=== PATIENT | female | born 1940 | race Caucasian/White ===

== ENCOUNTER → 2020-09-06 10:35 | Outpatient (BNVA) | payer MEDICARE, SELFPAY | PROVIDERS: PCP Family Medicine; Visit Provider Hospitalist | DX: J43.2 Centrilobular emphysema (principal); R91.8 Other nonspecific abnormal finding of lung field; J96.11 Chronic respiratory failure with hypoxia | CPT/HCPCS: 99212 ==

== ENCOUNTER → 2021-04-16 09:58 | Outpatient (BNVA) | payer MEDICARE, SELFPAY | PROVIDERS: PCP Family Medicine; Visit Provider Hospitalist | DX: J43.2 Centrilobular emphysema (principal); R91.8 Other nonspecific abnormal finding of lung field; J96.11 Chronic respiratory failure with hypoxia | CPT/HCPCS: 99212 ==

== ENCOUNTER → 2022-01-31 13:15 | Outpatient (BNVA) | payer MEDICARE, SELFPAY | PROVIDERS: PCP Family Medicine; Visit Provider Hospitalist | DX: J43.2 Centrilobular emphysema (principal); J96.11 Chronic respiratory failure with hypoxia; R91.8 Other nonspecific abnormal finding of lung field | CPT/HCPCS: 99212 ==

== ENCOUNTER → 2022-08-06 10:45 | Outpatient (BNVA) | payer MEDICARE, SELFPAY | PROVIDERS: PCP Family Medicine; Visit Provider Hospitalist | DX: J96.11 Chronic respiratory failure with hypoxia (principal); J43.2 Centrilobular emphysema; R91.8 Other nonspecific abnormal finding of lung field | CPT/HCPCS: 99212 ==

== ENCOUNTER 2023-08-01 13:59 | Outpatient (AMB) | payer MEDICARE, SELFPAY ==
--- NOTE | 2023-08-01 14:03 | A.OFFVIS_ITS ---
Intake Vital Signs 08/01/23 14:04 Weight 111 lb 5.335 oz BP 142/72 H Blood Pressure Location Rt brachial Position Sitting Pulse 110 H Pulse Source Pulse Oximeter Pulse Oximetry (%) 93 Oxygen Delivery Method Room Air Intake Visit Reasons: COPD Allergies fluticasone [Advair Diskus] Allergy (Severe, Verified 08/01/23 14:08) Mouth Dryness salmeterol [Advair Diskus] Allergy (Severe, Verified 08/01/23 14:08) Mouth Dryness Medication List - Last Reconciled 08/01/23 by Lety Porter LPN acetaminophen (Tylenol Extra Strength) 500 mg PO Q6H PRN apixaban (Eliquis) 2.5 mg PO BID atorvastatin 10 mg PO DAILY calcium carbonate (Calcium 500) 500 mg PO DAILY cholecalciferol (vitamin D3) 25 mcg PO DAILY Combivent Respimat 20-100 mcg/actuation (ipratropium-albuterol) 1 puff inhalation QID NS diltiazem HCl ER (Tiadylt ER) 0 mg PO hydrochlorothiazide 25 mg PO DAILY inhalational spacing device (Aerochamber Plus Flow-Vu) As directed Oxygen Home Use As directed Symbicort 160-4.5 mcg/actuation (budesonide-formoterol) 2 puffs PO BID NS turmeric mg PO HPI HPI Comments History of Present Illness Details The patient is a 83-year-old woman with a known history of COPD and chronic respiratory failure. Recently she was diagnosed with RSV with pneumonia. She was admitted to [facility]. There she had an x-ray which did not demonstrate any significant airspace disease however, she did have what appeared to be a nodular density in the left lung base. Not sure this is a nipple or this is actual nodular density. Therefore, she needs to undergo a repeat x-ray. The patient also has been using oxygen. She has not been using the oxygen all the time. Therefore we did a 6 minutes walk test the patient demonstrated that she does need the oxygen with activity. Therefore, we encouraged the patient to use the oxygen with activity. She continues her respiratory therapy. She is also using Eliquis for atrial fibrillation. Otherwise patient is without any other complaints. In the office we did a 6 minutes walk test on the patient did demonstrate her need for oxygen still needing at least 2 L with activity. Will try to see if she can qualify for conserving device by decreasing the minimum pulse ox. We did review her chest x- ray demonstrating just hyperinflation no evidence of any nodular densities as described during her last x-ray. However, we understand that x-rays and a perfect to look at nodular densities in a CT scan be a lot more accurate. Therefore will discuss the need for CT scan during his next visit. Recently she was diagnosed with RSV with pneumonia. She was admitted to [facility]. There she had an x-ray which did not demonstrate any significant airspace disease however, she did have what appeared to be a nodular density in the left lung base. Not sure this is a nipple or this is actual nodular density. Therefore, she needs to undergo a repeat x-ray. The patient also has been using oxygen. She has not been using the oxygen all the time. Therefore we did a 6 minutes walk test the patient demonstrated that she does need the oxygen with activity. Therefore, we encouraged the patient to use the oxygen with activity. She continues her respiratory therapy. She is also using Eliquis for atrial fibrillation. Otherwise patient is without any other complaints. She does have underlying pulmonary nodules noted on her x-ray from September 2019. Will have her get a chest x-ray at this time to see if is still present. If the x-ray continues to be abnormal then will talk about getting a CT scan of the chest. 09/06/2020 the patient is here for pulmonary follow-up visit. Overall she is doing about the same. She continues to use her oxygen with activity with good effect. She continues on the current respiratory regimen. Again we talked about her imaging studies. She did have chest x-rays done at [facility] demonstrating no acute disease and also has had an x-ray here back in October 2019 demonstrating no evidence of any acute disease or pulmonary nodules. She does have underlying pulmonary nodules based on that CXR. At this point the patient has been doing well and she is concerned about the COVID-19 infections and therefore would like not to follow-up with any imaging at this time. Therefore will plan to follow-up in 6 months she should have a chest x-ray prior to that visit. She develops any worsening symptoms or any new symptoms she is to call so we can look at that sooner. Will hold off on any CAT scans at this time based on the patient's preference. 04/16/2021 the patient is here for a pulmonary follow-up visit. Overall the patient has been doing relatively well. She continues use the oxygen with good effect. She does use with activity. In addition to that she has been using her respiratory inhalers with good adherence. She has not required any hospitalizations. However, 1 was hot and humid the patient did develop worsening shortness of breath requiring prednisone. She completed the prednisone course and she does feel better at this time. She denies any cough or any worsening congestion. She was supposed to undergo a chest x-ray but she did not have the opportunity. I did recommend she can have the x-ray done after the visit but she felt that she was doing well. I did encourage her to get the x-ray prior to the next visit in 6 months. If however she is developing any worsening symptoms prior to that visit she is to call our office for earlier assessment. 01/31/2022 the patient is here for a pulmonary follow-up visit. Overall the patient is doing relatively well from a respiratory status. She continues use her oxygen with good effect. The patient also continues her respiratory therapy. She continues to have dyspnea on exertion. [id number] severity. Now she is planning a trip for a family reunion in [facility]. She did bring the paperwork that needs to be filled out in order for her to be able to travel. Patient already has a portable oxygen concentrator that is if they approve and should have no difficulties with it. The meantime the patient has all her medications she knows to take a mole to when she goes over to [place]. The patient does need a spacer. I do not have 1 available so will send to the local pharmacy. 08/01/2023 the patient is here for a pulmonary follow-up visit. She continues to do well. Continues to have dyspnea on exertion. Today she came in without her oxygen because her portable oxygen concentrator is undergoing maintenance. Therefore she has increased shortness of breath today with activity. [id number] severity. She is going slow. She continues her respiratory therapy with good effect. She has yet get a chest x-ray. [place] therefore she [place] have 1. However, she will make time sometime after the holidays to get her chest x-ray. Will follow up with the patient 6 months. [facility] Medical History (Updated 04/16/21 @ 21:46 by Sahnkar Pablo MD) Chronic respiratory failure Pulmonary nodules COPD (chronic obstructive pulmonary disease) Social History (Updated 04/16/21 @ 10:22 by ASTRID Bourgeois) Patient Tobacco Use Status: Former Tobacco user Tobacco use type: Cigarette Years Smoked: 12 years Review of Systems Const Denies night sweats ENT Denies change in voice, Denies lip swelling, Denies mouth pain, Reports nasal congestion, Reports nasal discharge and Denies tongue swelling Card Denies chest pain and Reports dyspnea on exertion Resp Reports cough and Reports dyspnea on exertion GI Denies abdominal pain Musc Denies no additional complaints Neuro Denies Neuro-related abnormal movements Psych Denies no additional complaints Chi/Lymph Denies easy bleeding and Denies lymphadenopathy Aller/Immun Denies lip swelling and Denies tongue swelling Physical Exam Vital Signs: Last Vital Signs Pulse 110 H 08/01/23 14:04 BP 142/72 H 08/01/23 14:04 Pulse Ox 93 08/01/23 14:04 Oxygen Delivery Method Room Air 08/01/23 14:04 Const General: alert HEENT General nose exam: Abnormal external nose present and Nasal discharge present Eyes Pupils: Equal, round and reactive pupils present Neck Neck: Yes normal visual inspection, Yes full ROM and Yes no lymphadenopathy Chest Chest palpation & inspection: normal inspection of the chest Resp Auscultation: diminished lung sounds Cardio Rate: regular rate Rhythm: regular rhythm Heart sounds: S1 normal heart sound present and S2 normal heart sound present GI Palpation (GI): Soft to palpation and nontender Auscultation: normal bowel sounds General: Yes no CVA tenderness Back/Spine/Pelvis Back: no CVA tenderness Skin General skin exam: rashes and/or lesions noted Neuro Cranial nerves: Yes Equal, round and reactive pupils present Assessment & Plan Assessment & Plan (1) COPD (chronic obstructive pulmonary disease): Code(s): J44.9 - Chronic obstructive pulmonary disease, unspecified Qualifiers: COPD type: emphysema Emphysema type: centrilobular Qualified Code(s): J43.2 - Centrilobular emphysema Plan: continue respiratory therapy (2) Pulmonary nodules: Comment: Had a previous CXR with nodular density, repeat CXR w/o nodules but Xray not conslusive. The patient is not interested in having a CT chest at this time. Therefore, will have her get repeat CXR. Code(s): R91.8 - Other nonspecific abnormal finding of lung field (3) Chronic respiratory failure: Code(s): J96.10 - Chronic respiratory failure, unspecified whether with hypoxia or hypercapnia Qualifiers: Respiratory failure complication: hypoxia Qualified Code(s): J96.11 - Chronic respiratory failure with hypoxia Plan continue Symbicort and Combivent spacer for symbicort continue DuoNeb continue oxygen supplementation 2 L with activity and sleep I did encourage her to get a chest x-ray due to the fact that her last x-ray was abnormal. The patient is reluctant to have one. Will readdress during her f/u visit Follow-up in 6 months or sooner if she develops any worsening symptoms. Coding Level of Care Code Est Pt Level 4 (23208) Diagnoses Centrilobular emphysema J43.2 COPD type: emphysema Emphysema type: centrilobular Pulmonary nodules R91.8 Chronic respiratory failure with hypoxia J96.11 Respiratory failure complication: hypoxia Time Spent (min) 16
[2023-08-01 14:04] VITALS: BP 142/72; PULSE 110; O2SAT 93
== END 2023-08-01 14:22 | disposition home or self-care (01) ==
PROVIDERS: PCP Family Medicine; Visit Provider Hospitalist
DX: J43.2 Centrilobular emphysema (principal); R91.8 Other nonspecific abnormal finding of lung field; J96.11 Chronic respiratory failure with hypoxia
CPT/HCPCS: 99214

== ENCOUNTER → 2023-08-01 13:59 | Outpatient (BNVA) | payer MEDICARE, SELFPAY | PROVIDERS: PCP Family Medicine; Visit Provider Hospitalist | DX: J96.11 Chronic respiratory failure with hypoxia (principal); J44.9 Chronic obstructive pulmonary disease, unspecified; J43.2 Centrilobular emphysema; R91.8 Other nonspecific abnormal finding of lung field; Z87.891 Personal history of nicotine dependence; Z99.81 Dependence on supplemental oxygen | CPT/HCPCS: 99212 ==

== ENCOUNTER 2024-09-13 10:29 | Outpatient (AMB) | payer MEDICARE, MEDICAID, SELFPAY ==
[2024-09-13 10:37] VITALS: BP 138/72; PULSE 87; O2SAT 94; BMI 17.3
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
== END 2024-09-13 10:58 | disposition home or self-care (01) ==
PROVIDERS: PCP Family Medicine; Visit Provider Hospitalist
DX: J43.2 Centrilobular emphysema (principal); R91.8 Other nonspecific abnormal finding of lung field; J96.11 Chronic respiratory failure with hypoxia
CPT/HCPCS: 99214

== ENCOUNTER → 2024-09-13 10:29 | Outpatient (BNVA) | payer MEDICARE, SELFPAY | PROVIDERS: PCP Family Medicine; Visit Provider Hospitalist | DX: J43.2 Centrilobular emphysema (principal); J96.11 Chronic respiratory failure with hypoxia; R91.8 Other nonspecific abnormal finding of lung field | CPT/HCPCS: 99212 ==

== ENCOUNTER 2024-09-22 10:47 | Outpatient (REF) | payer MEDICARE, MEDICAID, SELFPAY ==
--- NOTE | ~2024-09-22 | XR_ITS ---
CLINICAL HISTORY: R91.8 - Other nonspecific abnormal finding of lung field 2 view chest x-ray Comparison: 11/02/2019 Findings: Decreased bilateral pleural effusion with persistent blunting of the posterior costophrenic recesses. No lung infiltrate. Small calcified nodule/granuloma projecting over the left lower lung. Normal size heart. No acute fracture. Right glenohumeral osteoarthritis. IMPRESSION: Decreased bilateral pleural effusion with persistent blunting (due to pleural adhesion/thickening versus pleural effusions) of the posterior costophrenic recesses. No lung infiltrate. This document has been electronically signed by: Mignon Tao MD on 09/23/2024 12:27:49
== END 2024-09-22 10:48 | disposition home or self-care (01) ==
LOC: HO.XRAY 10:47
PROVIDERS: PCP Family Medicine; Visit Provider Hospitalist
DX: R91.8 Other nonspecific abnormal finding of lung field (principal); J96.11 Chronic respiratory failure with hypoxia
CPT/HCPCS: 71046

== ENCOUNTER → 2024-09-22 10:59 | Outpatient (BNV) | payer MEDICARE, MEDICAID, SELFPAY | PROVIDERS: PCP Family Medicine; Visit Provider Radiology Diagnostic Radiology | DX: R91.8 Other nonspecific abnormal finding of lung field (principal) | CPT/HCPCS: 71046 ==

== ENCOUNTER 2025-03-17 10:51 | Outpatient (AMB) | payer MEDICARE, SELFPAY ==
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
[2025-03-17 10:59] VITALS: BP 164/66; PULSE 93; O2SAT 95
--- OUTSIDE RECORDS SUMMARY | 2025-03-17 11:35 | XMS_ITS | Encounter Summary ---
Author Organization [facility] Address [address] [place] [address] Care Team Providers Care Senior Mobile Application Developer Name Role Phone Unavailable Primary Care Provider Unavailabl e Encounter Details Date Type Department Care Team (Late st Contact Info) Description 12/20/2024 Scanned Document Formerly [facility] [place] [address] [phone] Primary Care, Scan Social History Tobacco Use Types Packs/Day Years Used Date Smoking Tobacco: Never Assessed Comments Unknown Sex and Gender Information Value Date Recorded Sex Assigned at Not on file Legal Sex Female 11:21 AM EDT Gender Identity Not on file Sexual Orientation Not on file documented as of this encounter Plan of Treatment Not on file documented as of this encounter Visit Diagnoses Not on filedocumented in this encounter
--- OUTSIDE RECORDS SUMMARY | 2025-03-17 11:35 | XMS_ITS | Clinical Summary ---
Author Organization [facility] [employer] [facility] [place] Address [address] [place] [address] Phone Care Team Providers Care Pizza Delivery Driver Name Role Phone Karis Rodriguez MD Primary Care Provider Unavail able Allergies Active Allergy Reactions Criticality Noted Date Comments Fluticasone Propion-Salmeterol 10/01 Medications Eliquis 2.5 mg tablet Take 1 tablet (2.5 mg total) by mouth 2 (two) times a day. for 30 days 12/29/2024 Active Symbicort 160-4.5 mcg/actuation inhaler Inhale 2 puffs by mouth 2 (two) times a day. Active dilTIAZem (TIAZAC) 300 mg 24 hr capsule Take 1 capsule (300 mg total) by mouth 1 (one) time each day. 10/23/2024 Active hydroCHLOROthia zide (HYDRODIURIL) 25 mg tablet Take 1 tablet (25 mg total) by mouth 1 (one) time each day. 10/23/2024 Active atorvastatin (LIPITOR) 20 mg tablet Take 1 tablet (20 mg total) by mouth at bedtime. Active Encounters Date Type Department Care Team Description 01/11/2025 4:30 PM EDT Office Visit [facility] [place] [address] [place] [phone] Pepe Greene MD PAF (paroxysmal atrial fibrillation) (CMS/HCC V24, CMS/HCC V28) (Primary Dx) from Last 3 Months Surgical History Surgery Date Site/Laterality Comments OTHER SURGICAL HISTORY PROCEDURE: [place] ARTHRP ACETBLR/PROX FEM PROSTC AGRFT/ALGRFT Medical History Medical History Date Comments History of total hip replacement 07/07/2017 DX:History of total hip replacement Social History Tobacco Use Types Packs/Day Years Used Date Smoking Tobacco: Former Cigarettes Smokeless Tobacco: Never Tobacco Cessation:Counseling Given: Not Answered Comments Unknown Sex and Gender Information Value Date Recorded Sex Assigned at Not on file Legal Sex Female 9:09 AM EST Gender Identity Not on file Sexual Orientation Not on file Obstetrics History Last Filed Vital Signs Vital Sign Reading Time Taken Comments Blood Pressure 118/70 01/11/2025 4:21 PM EDT Pulse 90 01/11/2025 4:21 PM EDT Temperature - - Respiratory Rate - - Oxygen Saturation 98% 01/11/2025 4:21 PM EDT Inhaled Oxygen Concentration - - Weight 45.8 kg (101 lb) 01/11/2025 4:21 PM EDT Height 152.4 cm (5') 01/11/2025 4:21 PM EDT Body Mass Index 19.73 01/11/2025 4:21 PM EDT Plan of Treatment Upcoming Encounters Date Type Department Care Team (Late st Contact Info) Description 07/19/2025 10:00 AM EST Office Visit [facility] [place] [address] [phone] Pepe Greene MD [address] [place] [phone] Health Maintenance Due Date Last Done Comments DTaP,Tdap,and Td Vaccines (1 - Tdap) 1961 Zoster Vaccines (1 of 2) 1992 RSV Immunization Adult Patients (1 - 1-dose 75+ series) 2017 COVID-19 Vaccine (4 - 2023-2 5 season) 2024 06/26/2022, 11/29/2020, 11/01/2020 Depression Screening 12/27/2024 Falls Risk Assessment 12/27/2024 Medicare Annual Wellness Visit 12/27/2024 Osteoporosis Screening (Bone Density Screening) 12/27/2024 Social Influencers of Health Screening 12/27/2024 Influenza Vaccine (#1) 2025 3, 06/26/2022, 06/16/2020 Pneumococcal Vaccine: 50+ Years Completed 05/29/2023, 03/20/2018, 03/03/2017 HIB Vaccines Aged Out No longer eligi ble based on patient's age to complete this topic HPV Vaccines Aged Out No longer eligi ble based on patient's age to complete this topic Hepatitis A Vaccines Aged Out No long er eligible based on patient's age to complete this topic Hepatitis B Vaccines Aged Out No long er eligible based on patient's age to complete this topic IPV Vaccines Aged Out No longer eligi ble based on patient's age to complete this topic MMR Vaccines Aged Out No longer eligi ble based on patient's age to complete this topic Meningococcal ACWY Vaccine Aged Out N o longer eligible based on patient's age to complete this topic Meningococcal B Vaccine Aged Out No l onger eligible based on patient's age to complete this topic RSV Immunization Patients Under 20 months Aged Out No longer eligible b ased on patient's age to complete this topic Varicella Vaccines Aged Out No longer eligible based on patient's age to complete this topic Procedures Procedure Name Priority Date/Time Associated Diagnosis Comments ECG 12-LEAD Routine 01/11/2025 4:26 PM EDT PAF (paroxysmal atrial fibrillation) (CMS/HCC V24, CMS/[facility] V28) from Last 3 Months Results * ECG 12 lead (01/11/2025 4:26 PM EDT) Narrative Pepe Greene MD - 01/11/2025 4:26 PM EDT Atrial fibrillation 96 bpm, right axis deviation, incomplete RBBB, nonspecific ST-T abnormality Pepe Greene MD ECG ORDERABLES Final Re sult from Last 3 Months Insurance MEDICA[place] - [place] MEDICARE Care Teams Pizza Delivery Driver Relationship Specialty Start Date End Date Karis Rodriguez MD PCP - General Internal Medicine 07/22/17
--- OUTSIDE RECORDS SUMMARY | 2025-03-17 11:35 | XMS_ITS ---
Author Name [facility] Organization Unknown History of Medication Use Medication Directions Dispensed Refills Start Date End Date Stat us Eliquis 2.5 mg tablet Take 1 tablet (2.5 mg total) by mouth 2 (two) times a day. for 30 days 12/29/2024 active dilTIAZem (TIAZAC) 300 mg 24 hr capsule Take 1 capsule (300 mg total) by mouth 1 (one) time each day. 10/23/2024 active hydroCHLOROthiazide (HYDRODIURIL) 25 mg tablet Take 1 tablet (25 mg total) by mouth 1 (one) time each day. 10/23/2024 active atorvastatin (LIPITOR) 20 mg tablet Take 1 tablet (20 mg total) by mouth at bedtime. active Symbicort 160-4.5 mcg/actuation inhaler Inhale 2 puffs by mouth 2 (two) times a day. active Allergies Allergen Reaction Severity Comment Documented Date Source Statu s FLUTICASONE PROPION-SALMETEROL 10/01/2016 [facility]_THSFRAN active Problems Problem Status Onset Date Problem Type Date of Resolution Source PAF (paroxysmal atrial fibrillation) ([facility] V24, [facility] V28) active EncounterDiagnosisAct [facility]_THS BRITNI Atrial fibrillation, unspecified type ([facility]) [facility] En[facility] Encounter Type Encounter Reason Primary Diagnosis Location Date Ambulatory new patient Paroxysmal atria l fibrillation ([facility] V24, [facility] V28) [facility] 01/11/2025 Care Team Organization Name Specialty Phone Email Start Date End Da te [facility] 01/11/2025 [facility] 01/11/2025 [facility] 12/20/2024
== END 2025-03-17 11:21 | disposition home or self-care (01) ==
LOC: HO.HPS 10:52
PROVIDERS: PCP Family Medicine; Visit Provider Hospitalist
DX: J43.2 Centrilobular emphysema (principal); R91.8 Other nonspecific abnormal finding of lung field; J96.11 Chronic respiratory failure with hypoxia
CPT/HCPCS: 99214; G2211

== ENCOUNTER → 2025-03-17 10:51 | Outpatient (BNVA) | payer MEDICARE, SELFPAY | PROVIDERS: PCP Family Medicine; Visit Provider Hospitalist | DX: J43.2 Centrilobular emphysema (principal); J96.11 Chronic respiratory failure with hypoxia; R91.8 Other nonspecific abnormal finding of lung field | CPT/HCPCS: 99212 ==